=== PATIENT | female | born 1980 | race Caucasian/White ===

== ENCOUNTER 2017-02-12 16:18 | Emergency (ER) | payer MEDICAID ==
[~2017-02-12] VITALS: Ht 167.6 cm; Wt 63.5 kg
[~2017-02-12 16:18] MED LIST: AMOXICILLIN 50500 MG PO; BACTRIM DS 8001 TAB PO; FLEXERIL10 MG PO; LORTAB 5/500 501 TAB PO; NOMEDS
--- NOTE | 2017-02-12 16:42 | [facility] Report ---
History of Present Issue Date/Time Seen by Provider 02/12/17 1642 Visit Reason Pt arrived:Walked Presenting Problem:PT STATES CHEST CONGESTION AND COUGH X1 WEEK Location if Accident: Onset of symptoms date/time:/ or onset unknown for:MEDICAL HX UNKNOWN Have you (or family members/close friends) recently traveled outside the [place]? N If Yes, where/when: Have you had exposure to infectious disease within the past month? TB? Other? Specify: c/o rhinorrhea, nasal congestion, PND, cough, sore throat and now sinus pressure. Started around 1-2 weeks ago, worse last several day. Feels the worst at night. Difficulty breathing due to nasal congestion. Denies SOA, wheezing. Tried 2 days of leftover amoxicillin, no improvement. Hasn't taken or tried anything else. No known sick contacts. Source patient Exam Limitations no limitations ALLERGIES Coded Allergies: No Known Allergies (07/15/16) Home Medications Reported Medications No Home Medications (NO HOME MEDICATIONS) History Medical History General CAD? No Angina: No IA: No Hypertension? No Hyperlipidemia? No CHF? No DVT? No PE? No COPD? No Asthma? No Anemia? No GERD? No Gastric ulcers? No GI Bleed? No Hernia? No Thyroid Problems? No Hypothyroidism? No CVA? No Seizures? No Diabetes? No Renal Insuffiency? No UTI? No Stones? No BPH? No GB Disease: No Nephritic Syndrome? No Asplenia? No Hepatitis? No Sickle Cell Disease? No Arthritis? No Migraines? No Cataracts? No Glaucoma? No MRSA? No HIV? No TB? No Anxiety? No Depression? No Cancer? No More? No Immunization HX DT/Tetanus 5-10 YRS Surgical Hx Previous Surgery?Y LAPEROSCOPY [employer] Hx LMP 1 Month Ago Social History Smoking Hx Smoker: Current Every Day Smoker Tobacco: Yes Type Cigarettes Packs/day < 1 Pack Alcohol Alcohol: No Review of Systems All Other Systems Reviewed and Negative Constitutional denies chills, denies fever, denies malaise Eyes denies drainage ENT see HPI. denies: ear pain, ear discharge, throat swelling. Respiratory see HPI, other (1ppd) Cardiovascular denies chest pain Gastrointestinal denies no symptoms reported Musculoskeletal denies other (aches) Skin denies rash Psychiatric/Neurological headache (mild, intermittent,frontal,qhs) Physical Exam Vital Signs Vital Signs Date Time Temp Pulse Resp B/P Pulse O2 O2 Flow FiO2 Ox Delivery Rate 02/12 1717 98.3 88 20 106/62 98 02/12 1631 98.3 88 20 106 98 General Appearance normal appearance, no apparent distress Eye Exam - bilateral eye normal exam Ear, Nose, Throat nasal congestion, thick rhinorrhea, PND, cobblestoning, moderate frontal sinus tenderness, normal EACs and TMs Neck non-tender, supple Respiratory Status Yes: non productive cough. No: respiratory distress, use of accessory muscles, productive cough. Lung Sounds anterior: lungs clear. posterior: lungs clear. bilateral: lungs clear. Cardiovascular regular rate/rhythm, no peripheral edema, no murmur Neurologic alert, oriented x 3 Mental status normal mood/affect Skin normal color, warm/dry Lymphatic no adenopathy Medical Decision Making LABS/Meds/Orders Pt receiving controlled substance in ED? No Departure Departure Time of Disposition 1709 Disposition DC Home or Self Care(routine) Clinical Impression Primary Impression: Acute frontal sinusitis Qualifiers: Recurrence: non-recurrent Qualified Code: J01.10 - Acute frontal sinusitis, unspecified Secondary Impressions: Cough Condition STABLE Referrals SUE PRATER (Family) Immediately for new or worsening symptoms or if no noticeable improvement in the next 3-5 days. Patient Instructions DI for Sinusitis Additional Instructions Never take left over antibiotics. Always finish your antibiotics unless told otherwise. augmentin can cause GI side effects. Probiotics help prevent these symptoms * Start antibiotic and be sure to take as ordered for the FULL length of time even if you feel better. Sinus infections do not get better overnight. It may take 2-3 days to notice much improvement so be sure to use conservative measures as discussed for symptoms. * Flonase 2 sprays each nostril daily to help with nasal congestion, sinus and ear pressure/inflammation * Lots of fluids * Sleep elevated * Humidifier/vaporizer * Bromfed may cause drowsiness. Know how it effects you (or your child) before driving, caring for small children, or sending your child to school. No other antihistamines/allergy medications while taking bromfed. * if wheezing or SOA develop, follow up immediately. 911 for difficulty breathing Discharge Counseling Counseled pt/family regarding diagnosis, medications/RX, home care, follow up needs Prescriptions Current Visit Scripts Amoxicillin/Potassium Clav (Augmentin 875-125 Tablet) 1 EACH PO BID #20 TAB Fluticasone Propionate (Flonase 50 Mcg Nasal [place]) 1 SPRAY NA BID #1 BOT D-METHORPHAN HB/P-EPD HCL/BPM (Bromfed Dm Cough Syrup) 10 ML PO QIDP PRN cough #240 ML at 7875
[2017-02-12] MEDS ORDERED: BROMFED DM COU118 ML PO (17:13)
[2017-02-12] MEDS ORDERED: AUGMENTIN 875-1 EACH PO (17:13)
[2017-02-12] MEDS ORDERED: FLONASE 50 MCG16 GM (17:13)
[2017-02-12 17:17] VITALS: BP 106/62
== END 2017-02-12 17:17 | disposition home or self-care (01) ==
LOC: UTC 16:18
DX: J01.10 Acute frontal sinusitis, unspecified (principal); Z72.0 Tobacco use